=== PATIENT | female | born 1995 | race Caucasian/White ===

== ENCOUNTER 2016-04-11 22:27 | Emergency (ER) | payer BC, OTHER ==
[~2016-04-11] VITALS: Ht 167.6 cm; Wt 81.5 kg
[~2016-04-11 22:27] MED LIST: LORTA5 PO; SULF1TAB47 PO
[2016-04-11 22:31] VITALS: BP 135/79; PULSE 66; RESP 16; TEMP 98.8; O2SAT 100
--- NOTE | 2016-04-11 22:55 | PD ---
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 Patient's last menstrual period was February 28 and reportedly normal for her. Patient was seen by her electronic systems security assessment approximately a week ago at which time Dr. Kennedy's office obtained a urine test that was reportedly positive. Patient had a positive home test prior to going to see her electronic systems security assessment. Patient was encouraged to follow-up with an jewelry setter and has an appointment with Dr. Napoles May 01. Patient has been taking vitamins. Patient states evening she had excruciating pelvic pain that resolved spontaneously until this evening after dinner had recurrent cramping presently 2 /10 in intensity at worst 7/10 in intensity. Patient is 1 para 0 AB 0. PFSH Past Medical History Narrative Medical Headaches, Ab0; no tobacco use nursing notes reviewed Diminished Hearing: No Headaches: Yes Immunizations Current: Yes Social History Alcohol Use: No Tobacco Use: No Substance Use: No Allergies-Medications (Allergen,Severity, Reaction): Coded Allergies: No Known Allergies (Verified , 04/11/16) Reported Meds & Prescriptions Reported Meds & Active Scripts Active Lortab 5/325 Tab (Hydrocodone-Acetaminophen) 1 Tab Tab 1 Tab PO Q6H PRN Bactrim Ds (Trimethoprim/Sulfamethoxazole) Tab 1 Tab PO BID Review of Systems Except as stated in HPI: all other systems reviewed are Neg General / Constitutional: No: Fever, Chills Cardiovascular: No: Chest Pain or Discomfort Respiratory: No: Shortness of Breath Gastrointestinal: Positive: Abdominal Pain, No: Vomiting Genitourinary: Positive: Pelvic Pain, Vaginal Bleeding, No: Dysuria, Discharge Musculoskeletal: No: Pain Skin: No Rash Neurologic: No: Weakness Psychiatric: No: Anxiety Hematologic/Lymphatic: No: Lymph Node Enlargement Physical Exam Narrative GENERAL: Well-developed well-nourished female in no acute distress no respiratory distress SKIN: Warm and dry. HEAD: Normocephalic. EYES: No scleral icterus. No injection or drainage. NECK: Supple, trachea midline. No JVD or lymphadenopathy. CARDIOVASCULAR: Regular rate and rhythm without murmurs, gallops, or rubs. RESPIRATORY: Breath sounds equal bilaterally. No accessory muscle use. GASTROINTESTINAL: Abdomen soft, mild suprapubic tenderness to direct palpation without guarding or rebound, nondistended. Pelvic exam: MUSCULOSKELETAL: No cyanosis, or edema. BACK: Nontender without obvious deformity. No CVA tenderness. Data Data Last Documented VS Vital Signs Date Time Temp Pulse Resp B/P Pulse Ox O2 Delivery O2 Flow Rate FiO2 04/12/16 00:10 55 16 110/66 100 Room Air 04/11/16 22:31 98.8 Orders Beta Hcg (Quant/Titer) (04/11/16 22:48) Complete Blood Count With Diff (04/11/16 22:48) Complete Rh (04/11/16 22:48) Urinalysis - C+S If Indicated (04/11/16 22:48) Iv Access Insert/Monitor (04/11/16 22:48) Ed Urine Pregnancytest Poc (04/11/16 22:48) Us Pelvis (Ques Pr/Ect)W Trans (04/12/16 ) Labs Laboratory Tests Test 04/11/16 23:05 White Blood Count 6.7 TH/MM3 Red Blood Count 4.81 MIL/MM3 Hemoglobin 14.3 GM/DL Hematocrit 42.7 % Mean Corpuscular Volume 88.8 FL Mean Corpuscular Hemoglobin 29.8 PG Mean Corpuscular Hemoglobin 33.6 % Concent Red Cell Distribution Width 13.0 % Platelet Count 183 TH/MM3 Mean Platelet Volume 8.9 FL Neutrophils (%) (Auto) 53.4 % Lymphocytes (%) (Auto) 38.6 % Monocytes (%) (Auto) 6.1 % Eosinophils (%) (Auto) 0.9 % Basophils (%) (Auto) 1.0 % Neutrophils # (Auto) 3.5 TH/MM3 Lymphocytes # (Auto) 2.6 TH/MM3 Monocytes # (Auto) 0.4 TH/MM3 Eosinophils # (Auto) 0.1 TH/MM3 Basophils # (Auto) 0.1 TH/MM3 CBC Comment DIFF FINAL Differential Comment Urine Color STRAW Urine Turbidity CLEAR Urine pH 5.5 Urine Specific [place] 1.002 Urine Protein NEG mg/dL Urine Glucose (UA) NEG mg/dL Urine Ketones NEG mg/dL Urine Occult Blood SMALL Urine Nitrite NEG Urine Bilirubin NEG Urine Leukocyte Esterase NEG Urine RBC 0-3 /hpf Urine WBC 0-2 /hpf Urine Squamous Epithelial 0-5 /hpf Cells Urine Bacteria NONE /hpf Microscopic Urinalysis Comment CULT NOT INDICATED Human Chorionic Gonadotropin, 237 MIU/ML Quant Blood Type A POSITIVE Rho(D) Type POSITIVE MDM Medical Decision Making Medical Screen Exam Complete: Yes Emergency Medical Condition: Yes Medical Record Reviewed: Yes Interpretation(s) (A+) poc hcg: negative quant HC ua: normal cbc: values wnl US preg: CONCLUSION: 1. The ovaries are normal. 2. There is trace free fluid. 3. A tiny cystic focus in the endometrium may reflect an early gestational sac too small for dates. A yolk sac or pole not identified at this time. 4. Continued clinical and sonographic followup suggested. 5. There is trace fluid in the endocervical canal. Lane Gilmore MD on April 12, 2016 at 1:25 Board Certified Radiologist. This report was verified electronically. Differential Diagnosis , ectopic , spontaneous versus threatened versus incomplete versus inevitable AB, UTI Narrative Course IV access obtained specimens collected and sent for resulting [id number] hCG negative Bedside ultrasound reveals no obvious intrauterine ; pelvic exam cervical os closed scant old blood in vaginal vault no clots no tissue; no adnexal mass or tenderness to palpation no cervical motion tenderness or uterine tenderness to direct palpation. Quantitative hCG pending transvaginal pelvic ultrasound ordered. AB Rh pending patient reports she is a positive. Patient with significant other at bedside aware of quantitative hCG and urine test results. At 1:40 AM ultrasound is resulted and consistent with possible very early intrauterine with normal-appearing ovaries; no further spotting or bleeding in the emergency department; no discomfort at this time; patient is aware that based on quantitative hCG and hesitation may be at risk for very early with nonspecific vaginal bleeding versus threatened/incomplete versus inevitable miscarriage. Patient replaced at bedrest and pelvic rest 2 days with recommendation for repeat quantitative hCG in 48 hours and follow-up with her RODENT EXTERMINATOR Procedures Procedure Narrative [id number] ultrasound; with curvilinear probe transabdominal ultrasound performed by me using longitudinal and sagittal orientation with good visualization of bladder and uterus without obvious intrauterine noted Diagnosis Primary Impression: at early stage Additional Impression: Vaginal bleeding before 22 weeks gestation Referrals: Powersaw Supervisor 2 days Patient Instructions: General Instructions Departure Forms: Tests/Procedures, Work Release Special Instructions: no work x 2 days Additional Instructions: Quantitative hormone level and 48 hours Bedrest/pelvic rest Continue vitamins daily Take acetaminophen/Tylenol as often as every 4-6 hours as needed for minor discomfort/pain or fever 100.4F or greater Return immediately to the nearest emergency department for pain fever or increased bleeding or specifically for bleeding a pad an hour Disposition: 01 DISCHARGE HOME Condition: Stable Vanessa Segura MD Apr 11, 2016 22:55
[2016-04-11 23:20] LABS: BLOOD, URINE SMALL (NEG); GLUCOSE,URINE NEG (NEG); KETONE, URINE NEG (NEG); NITRITE,URINE NEG (NEG); PH, URINE 5.5 (5.0-8.5)
[2016-04-11 23:22] LABS: AUTOMATED NEUTROPHIL # 3.5 TH/MM3 (1.8-7.7); BASOPHIL # 0.1 TH/MM3 (0-0.2); EOSINOPHIL # 0.1 TH/MM3 (0-0.4); EOSINOPHIL % 0.9 % (0.0-4.0); HEMATOCRIT 42.7 % (35.0-46.0); HEMO FLAGS DIFF FINAL; LYMPH % 38.6 % (9.0-44.0); LYMPHOCYTE # 2.6 TH/MM3 (1.0-4.8); MEAN CELL VOLUME 88.8 FL (80.0-100.0); MEAN CORPUSCULAR HEMOGLOBIN 29.8 PG (27.0-34.0); MEAN CORPUSCULAR HGB CONC 33.6 % (32.0-36.0); MONO % 6.1 % (0.0-8.0); NEUT % 53.4 % (16.0-70.0); PLATELET COUNT 183 TH/MM3 (150-450); RED BLOOD COUNT 4.81 MIL/MM3 (4.00-5.30); WHITE BLOOD COUNT 6.7 TH/MM3 (4.0-11.0)
[2016-04-11 23:25] LABS: URINE COLOR STRAW (YELLW/STRAW)
[2016-04-11 23:26] LABS: COMMENT (UR) CULT NOT INDICATED; CULTURE IF INDICATED CULT NOT INDICATED; RBC, URINE 0-3 /hpf (0-3); SQUAMOUS EPITHELIAL CELL URINE 0-5 /hpf (0-5); WBC, URINE 0-2 /hpf (0-5)
[2016-04-11 23:39] LABS: BETA HCG QUANT 237 MIU/ML (0-5)
[2016-04-12 00:10] VITALS: BP 110/66; PULSE 55; RESP 16; O2SAT 100
--- NOTE | 2016-04-12 01:29 | RADHPO ---
EXAM DATE/TIME: 04/12/2016 00:48 [facility] COMPARISON: CT ABDOMEN & PELVIS W/O CONTRAST, May 08, 2013, 6:36. INDICATIONS : Pelvic cramping and spotting. LAB(S): Beta-hC MEDICAL HISTORY : . SURGICAL HISTORY : None. ENCOUNTER: Initial ACUITY: 1 day PAIN SCORE: 3/10 LOCATION: Bilateral pelvis MEASUREMENTS: UTERUS: 7.4 x 4.6 x 3.4 cm ENDOMETRIAL STRIPE: 7 mm RIGHT OVARY: 3.7 x 2.1 x 1.9 cm LEFT OVARY: 2.5 x 1.7 x 1.8 cm FINDINGS: UTERUS: A 4.1 mm cystic focus in the endometrial is present. This may reflect a tiny gestational sac out of r pricilla for accurate dates. RIGHT OVARY: Ovary contains no mass or significant cystic lesion. LEFT OVARY: Ovary contains no mass or significant cystic lesion. MISCELLANEOUS: Trace CONCLUSION: 1. The ovaries are normal. 2. There is trace free fluid. 3. A tiny cystic focus in the endometrium may reflect an early gestational sac too small for dates. A yolk sac or pole not identified at this time. 4. Continued clinical and sonographic followup suggested. 5. There is trace fluid in the endocervical canal. Lane Gilmore MD on April 12, 2016 at 1:25 Board Certified Radiologist. This report was verified electronically.
[2016-04-12 01:55] VITALS: BP 111/64; PULSE 59; RESP 16; O2SAT 100
== END 2016-04-12 02:07 | disposition home or self-care (01) ==
LOC: PHED 22:27
DX: O26.851 Spotting complicating pregnancy, first trimester (principal); O20.9 Hemorrhage in early pregnancy, unspecified; R10.2 Pelvic and perineal pain; R51 Headache
CPT/HCPCS: 76700; 76817; 81001; 84702; 84703; 85025; 86901

== ENCOUNTER 2016-04-12 15:49 | Emergency (ER) | payer BC ==
[~2016-04-12] VITALS: Ht 167.6 cm; Wt 80.0 kg
[2016-04-12 15:54] VITALS: BP 117/71; PULSE 81; RESP 16; TEMP 98.5; O2SAT 100
[2016-04-12 16:23] LABS: AUTOMATED NEUTROPHIL # 3.8 TH/MM3 (1.8-7.7); BASOPHIL # 0.1 TH/MM3 (0-0.2); BASOPHIL % 1.4 % (0.0-2.0); EOSINOPHIL % 0.7 % (0.0-4.0); HEMATOCRIT 43.5 % (35.0-46.0); HEMO FLAGS DIFF FINAL; LYMPH % 28.1 % (9.0-44.0); LYMPHOCYTE # 1.7 TH/MM3 (1.0-4.8); MEAN CELL VOLUME 89.6 FL (80.0-100.0); MEAN CORPUSCULAR HEMOGLOBIN 30.3 PG (27.0-34.0); MEAN CORPUSCULAR HGB CONC 33.8 % (32.0-36.0); MONO % 7.9 % (0.0-8.0); NEUT % 61.9 % (16.0-70.0); PLATELET COUNT 162 TH/MM3 (150-450); RED BLOOD COUNT 4.86 MIL/MM3 (4.00-5.30); RED CELL DISTRIBUTION WIDTH 12.9 % (11.6-17.2); WHITE BLOOD COUNT 6.1 TH/MM3 (4.0-11.0)
--- NOTE | 2016-04-12 16:45 | PD ---
HPI Chief Complaint: Related Problem Time Seen by Provider: 16:30 Travel History International Travel<30 days: No Contact w/Intl Traveler<30days: No Traveled to known affect area: No History of Present Illness HPI Patient is a 20-year-old female who returns to emergency room for evaluation of pelvic pain and bleeding. Patient reports that she was seen in the emergency room last night for similar symptoms. Patient reports that she thought that she was around 6 weeks , reports that hCG Quant obtained last night suggests that she may be earlier in her . Patient reports that her HCG quant was 237 around midnight last night. Patient reports that she had an ultrasound performed last night which showed possible early intrauterine with normal appearing ovaries. Reports that she was told that she had high risk for miscarriage given her symptoms. Reports that she had noticed increased bleeding today with increased lower abdominal cramping. Patient concerned that she may be having a miscarriage at this time. Patient reports that this is her first , patient is AB 0 Patient's pig farm manager is Dr. Vann who did confirm positive Patient will be seeing Dr. Gay with CAMPUS SECURITY OFFICER on May 01 for the remainder of her PFSH Past Medical History Diminished Hearing: No Headaches: Yes Immunizations Current: Yes ?: LMP: 02/29/16 : 1 Family History Family History: Negative Social History Alcohol Use: No Tobacco Use: No Substance Use: No Allergies-Medications (Allergen,Severity, Reaction): Coded Allergies: Prednisone (Verified Allergy, Intermediate, hives, 04/12/16) Reported Meds & Prescriptions Reported Meds & Active Scripts Active No Active Prescriptions or Reported Medications Review of Systems General / Constitutional: No: Fever Eyes: No: Visual changes HENT: No: Headaches Cardiovascular: No: Chest Pain or Discomfort Respiratory: No: Shortness of Breath Gastrointestinal: Positive: Abdominal Pain, No: Nausea, Vomiting, Diarrhea Genitourinary: No: Dysuria Musculoskeletal: No: Pain Skin: No Rash Neurologic: No: Weakness Psychiatric: No: Depression Endocrine: No: Polydipsia Hematologic/Lymphatic: No: Easy Bruising Physical Exam Narrative GENERAL: No acute distress, nontoxic SKIN: Warm and dry. HEAD: Atraumatic. Normocephalic. EYES: Pupils equal and round. No scleral icterus. No injection or drainage. ENT: No nasal bleeding or discharge. Mucous membranes pink and moist. NECK: Trachea midline. No JVD. CARDIOVASCULAR: Regular rate and rhythm. No murmur appreciated. RESPIRATORY: No accessory muscle use. Clear to auscultation. Breath sounds equal bilaterally. GASTROINTESTINAL: Abdomen soft, non-tender, nondistended. : patient refuses as she reports that she had a pelvic exam recently MUSCULOSKELETAL: No obvious deformities. No clubbing. No cyanosis. No edema. NEUROLOGICAL: Awake and alert. No obvious cranial nerve deficits. Motor grossly within normal limits. Normal speech. PSYCHIATRIC: Appropriate mood and affect; insight and judgment normal. Data Data Last Documented VS Vital Signs Date Time Temp Pulse Resp B/P Pulse Ox O2 Delivery O2 Flow Rate FiO2 04/12/16 15:54 98.5 81 16 117/71 100 Orders Beta Hcg (Quant/Titer) (04/12/16 16:10) Complete Blood Count With Diff (04/12/16 16:10) Labs Laboratory Tests Test 04/12/16 16:15 White Blood Count 6.1 TH/MM3 Red Blood Count 4.86 MIL/MM3 Hemoglobin 14.7 GM/DL Hematocrit 43.5 % Mean Corpuscular Volume 89.6 FL Mean Corpuscular Hemoglobin 30.3 PG Mean Corpuscular Hemoglobin 33.8 % Concent Red Cell Distribution Width 12.9 % Platelet Count 162 TH/MM3 Mean Platelet Volume 8.9 FL Neutrophils (%) (Auto) 61.9 % Lymphocytes (%) (Auto) 28.1 % Monocytes (%) (Auto) 7.9 % Eosinophils (%) (Auto) 0.7 % Basophils (%) (Auto) 1.4 % Neutrophils # (Auto) 3.8 TH/MM3 Lymphocytes # (Auto) 1.7 TH/MM3 Monocytes # (Auto) 0.5 TH/MM3 Eosinophils # (Auto) 0.0 TH/MM3 Basophils # (Auto) 0.1 TH/MM3 CBC Comment DIFF FINAL Differential Comment Human Chorionic Gonadotropin, 228 MIU/ML Quant MDM Medical Decision Making Medical Screen Exam Complete: Yes Emergency Medical Condition: Yes Interpretation(s) Vital Signs Date Time Temp Pulse Resp B/P Pulse Ox O2 Delivery O2 Flow Rate FiO2 04/12/16 15:54 98.5 81 16 117/71 100 Differential Diagnosis Early , threatened miscarriage, ectopic Narrative Course Patient is a 20-year-old female who returns to emergency room for evaluation of irregular vaginal bleeding with . She reports that she was seen in the emergency room last night and left learning and development officer after full evaluation which included a pelvic ultrasound, blood work, and evaluation. Patient returns to emergency room for repeat hCG Quant as her number was 237 last night. Patient concerned that she may be miscarrying as she has had increased vaginal bleeding today. Patient's blood work yesterday showed Type and screen: A + HCG Quant: 237 Patient overall nontoxic on evaluation. HCG quant ordered as well as CBC. CBC: WBC 6.1 Hemoglobin 14.7 Hematocrit 43.5 Platelets 162 HCG Quant: 228 HCG Quant was 237 yesterday, this number has decreased overnight. Discussed my concerns with patient for miscarriage. Patient understands and also understands need to have her HCG quant trended to 0. She will continue her vitamins and will follow up with press assistant and will return to ER as needed. Patient understands need for continued bed rest and pelvic rest. Signs and symptoms of when to return to ER was reviewed with patient. Diagnosis Primary Impression: Vaginal bleeding before 22 weeks gestation Additional Impression: Miscarriage, threatened, early Patient Instructions: General Instructions Additional Instructions: Your hCG Quant was 228 today Your hCG Quant was 237 yesterday Please follow-up with your CAMPUS SECURITY OFFICER as soon as possible You will need to have your hCG Quant levels trended Return to the emergency room immediately if you have return of pain, fever or increased bleeding Continue taking your vitamins. Scripts No Active Prescriptions or Reported Meds Disposition: DISCHARGE HOME Condition: Stable Amy Álvarez DO Apr 12, 2016 16:45
[2016-04-12 16:47] LABS: BETA HCG QUANT 228 MIU/ML (0-5)
[2016-04-12] MEDS ORDERED: oxyCODONE/ACETAMINOPHEN 5 MG/325 MG TAB PO ONE (17:45)
== END 2016-04-12 17:59 | disposition home or self-care (01) ==
LOC: PHED 15:49
DX: O20.0 Threatened abortion (principal); Z3A.01 Less than 8 weeks gestation of pregnancy
CPT/HCPCS: 84702; 85025; 99284

== ENCOUNTER 2017-04-24 12:59 | Emergency (ER) | payer BC ==
[~2017-04-24] VITALS: Ht 167.6 cm; Wt 89.0 kg
[2017-04-24 13:04] VITALS: BP 141/99; PULSE 73; RESP 16; TEMP 98.2; O2SAT 100
[2017-04-24 13:19] LABS: BILIRUBIN, URINE NEG (NEG); BLOOD, URINE NEG (NEG); GLUCOSE,URINE NEG (NEG); KETONE, URINE NEG (NEG); NITRITE,URINE NEG (NEG); URINE LEUKOCYTE ESTERASE TRACE (NEG)
[2017-04-24 13:23] LABS: SQUAMOUS EPITHELIAL CELL URINE > 8 /hpf (0-5); URINE COLOR YELLOW (YELLW/STRAW)
[2017-04-24 13:24] LABS: AMORPHOUS SEDIMENT, URINE MOD; BACTERIA, URINE FEW /hpf
[2017-04-24] MEDS ORDERED: SODIUM CHLORIDE 0.9% FLUSH 10 ML FLUSH IV FLUSH PRN (14:30)
[2017-04-24] MEDS ORDERED: KETOROLAC TROMETHAMINE 30 MG/ML (IVP) VIAL IVP ONE (14:30)
--- NOTE | 2017-04-24 14:36 | PD ---
HPI Chief Complaint: Abdominal Pain Time Seen by Provider: 14:17 Travel History International Travel<30 days: No Contact w/Intl Traveler<30days: No Traveled to known affect area: No History of Present Illness HPI 21-year-old female complains of right low quadrant abdominal pain and constipation. Patient states that the symptoms started about 2 days ago. Patient states the pain is sharp pain localized to right low quadrant of the abdomen. Patient denies any pain radiation. Patient denies any nausea vomiting diarrhea. Patient denies any dysuria or frequency. Patient states that she has small amount of vaginal discharge. Patient denies any vaginal bleeding. Patient states that she had pressure pain with urination and bowel movement for the past 3 days. PFSH Past Medical History Medical History: Denies Significant Hx Diminished Hearing: No Headaches: Yes Immunizations Current: Yes Influenza Vaccination: No ?: Not LMP: 04/07/17 : 1 Past Surgical History Surgical History: No Previous Surgery Social History Alcohol Use: No Tobacco Use: No Substance Use: No Allergies-Medications (Allergen,Severity, Reaction): Coded Allergies: prednisone (Unverified Allergy, Intermediate, hives, 04/24/17) Reported Meds & Prescriptions Reported Meds & Active Scripts Active No Active Prescriptions or Reported Medications Review of Systems General / Constitutional: No: Fever Eyes: No: Visual changes HENT: No: Headaches Cardiovascular: No: Chest Pain or Discomfort Respiratory: No: Shortness of Breath Gastrointestinal: Positive: Abdominal Pain Genitourinary: No: Dysuria Musculoskeletal: No: Pain Skin: No Rash Neurologic: No: Weakness Psychiatric: No: Depression Endocrine: No: Polydipsia Hematologic/Lymphatic: No: Easy Bruising Physical Exam Narrative GENERAL: Well-nourished, well-developed patient. SKIN: Focused skin assessment warm/dry. HEAD: Normocephalic. EYES: No scleral icterus. No injection or drainage. NECK: Supple, trachea midline. No JVD or lymphadenopathy. CARDIOVASCULAR: Regular rate and rhythm without murmurs, gallops, or rubs. RESPIRATORY: Breath sounds equal bilaterally. No accessory muscle use. GASTROINTESTINAL: Abdomen soft, nondistended. Patient has mild tenderness on palpation right lower quadrant of the abdomen. No rebound tenderness. No mass. MUSCULOSKELETAL: No cyanosis, or edema. BACK: Nontender without obvious deformity. No CVA tenderness. Data Data Last Documented VS Vital Signs Date Time Temp Pulse Resp B/P (MAP) Pulse Ox O2 Delivery O2 Flow Rate FiO2 04/24/17 14:56 98 Aerosol Mask 04/24/17 13:04 98.2 73 16 141/99 (113) Orders Orders Urinalysis - C+S If Indicated (04/24/17 13:07) Ed Urine Pregnancytest Poc (04/24/17 13:07) Urine Culture (04/24/17 13:10) Complete Blood Count With Diff (04/24/17 14:28) Comprehensive Metabolic Panel (04/24/17 14:28) Ct Abd/Pel W Iv Contrast(Rout) (04/24/17 14:28) Iv Access Insert/Monitor (04/24/17 14:28) Ecg Monitoring (04/24/17 14:28) Oximetry (04/24/17 14:28) Sodium Chloride 0.9% Flush (Ns Flush) (04/24/17 14:30) Ketorolac Inj (Toradol Inj) (04/24/17 14:30) Gc And Chlamydia Pcr (04/24/17 14:34) Iohexol 350 Inj (Omnipaque 350 Inj) (04/24/17 15:17) Labs Laboratory Tests Test 04/24/17 13:10 04/24/17 14:45 Urine Collection Type CLEAN CATCH Urine Color YELLOW Urine Turbidity CLEAR Urine pH 6.0 Urine Specific [place] 1.022 Urine Protein NEG mg/dL Urine Glucose (UA) NEG mg/dL Urine Ketones NEG mg/dL Urine Occult Blood NEG Urine Nitrite NEG Urine Bilirubin NEG Urine Leukocyte Esterase TRACE Urine WBC 6-8 /hpf Urine Squamous Epithelial Cells > 8 /hpf Urine Amorphous Sediment MOD Urine Bacteria FEW /hpf Microscopic Urinalysis Comment CULTURE INDICATED White Blood Count 6.4 TH/MM3 Red Blood Count 5.08 MIL/MM3 Hemoglobin 15.1 GM/DL Hematocrit 45.6 % Mean Corpuscular Volume 89.9 FL Mean Corpuscular Hemoglobin 29.8 PG Mean Corpuscular Hemoglobin Concent 33.1 % Red Cell Distribution Width 12.2 % Platelet Count 180 TH/MM3 Mean Platelet Volume 9.0 FL Neutrophils (%) (Auto) 66.4 % Lymphocytes (%) (Auto) 26.9 % Monocytes (%) (Auto) 5.6 % Eosinophils (%) (Auto) 0.4 % Basophils (%) (Auto) 0.7 % Neutrophils # (Auto) 4.3 TH/MM3 Lymphocytes # (Auto) 1.7 TH/MM3 Monocytes # (Auto) 0.4 TH/MM3 Eosinophils # (Auto) 0.0 TH/MM3 Basophils # (Auto) 0.0 TH/MM3 CBC Comment DIFF FINAL Differential Comment Blood Urea Nitrogen 14 MG/DL Creatinine 0.81 MG/DL Random Glucose 85 MG/DL Total Protein 7.3 GM/DL Albumin 4.1 GM/DL Calcium Level 9.1 MG/DL Alkaline Phosphatase 65 U/L Aspartate Amino Transf (AST/SGOT) 16 U/L Alanine Aminotransferase (ALT/SGPT) 18 U/L Total Bilirubin 0.4 MG/DL Sodium Level 138 MEQ/L Potassium Level 3.7 MEQ/L Chloride Level 104 MEQ/L Carbon Dioxide Level 27.1 MEQ/L Anion Gap 7 MEQ/L Estimat Glomerular Filtration Rate 90 ML/MIN MDM Medical Decision Making Medical Screen Exam Complete: Yes Emergency Medical Condition: Yes Interpretation(s) 1435 PM. Urine test negative. UA is negative. [address] scan abdomen and pelvis shows ovarian cyst. CBC within normal limit. CMP within normal limit. UA positive with WBC and bacteria. Differential Diagnosis Differential diagnosis including ovarian cyst, ovarian torsion, ectopic , appendicitis, colitis, UTI, pyelonephritis, nephrolithiasis. Narrative Course 21-year-old female with right lower quadrant abdominal pain. Diagnosis Primary Impression: UTI (urinary tract infection) Qualified Codes: N30.00 - Acute cystitis without hematuria Additional Impression: Ovarian cyst Qualified Codes: N83.201 - Unspecified ovarian cyst, right side Patient Instructions: General Instructions Additional Instructions: Take medications as needed for pain. Follow-up with personal physician. Return if worse. Med/Other Pt SpecificInfo: Prescription(s) given Scripts Ibuprofen (Ibuprofen) 600 Mg Tab 600 MG PO TID for Pain, #30 TAB 0 Refills Prov: Mathew Cadena MD 04/24/17 Sulfamethoxazole-Trimethoprim (Bactrim DS) 800-160 Mg Tab 1 TAB PO BID for Infection, #6 TAB 0 Refills Prov: Mathew Cadena MD 04/24/17 Disposition: 01 DISCHARGE HOME Condition: Stable Mathew Cadena MD Apr 24, 2017 14:36
[2017-04-24 14:52] LABS: AUTOMATED NEUTROPHIL # 4.3 TH/MM3 (1.8-7.7); BASOPHIL % 0.7 % (0.0-2.0); EOSINOPHIL % 0.4 % (0.0-4.0); HEMATOCRIT 45.6 % (35.0-46.0); HEMOGLOBIN 15.1 GM/DL (11.6-15.3); LYMPH % 26.9 % (9.0-44.0); LYMPHOCYTE # 1.7 TH/MM3 (1.0-4.8); MEAN CELL VOLUME 89.9 FL (80.0-100.0); MEAN CORPUSCULAR HEMOGLOBIN 29.8 PG (27.0-34.0); MEAN CORPUSCULAR HGB CONC 33.1 % (32.0-36.0); MONO % 5.6 % (0.0-8.0); MONOCYTE # 0.4 TH/MM3 (0-0.9); NEUT % 66.4 % (16.0-70.0); PLATELET COUNT 180 TH/MM3 (150-450); RED BLOOD COUNT 5.08 MIL/MM3 (4.00-5.30); RED CELL DISTRIBUTION WIDTH 12.2 % (11.6-17.2); WHITE BLOOD COUNT 6.4 TH/MM3 (4.0-11.0)
[2017-04-24 14:56] VITALS: O2SAT 98
[2017-04-24 15:01] LABS: CHLORIDE 104 MEQ/L (98-107); SODIUM (NA) 138 MEQ/L (136-145)
[2017-04-24 15:05] LABS: ALBUMIN 4.1 GM/DL (3.4-5.0); BICARBONATE 27.1 MEQ/L (21.0-32.0); BLOOD UREA NITROGEN 14 MG/DL (7-18); CALCIUM 9.1 MG/DL (8.5-10.1); GLUCOSE,RANDOM 85 MG/DL (74-106)
[2017-04-24 15:08] LABS: ALT (GPT) 18 U/L (9-42); AST (GOT) 16 U/L (16-38); CREATININE 0.81 MG/DL (0.50-1.00); GLOMERULAR FILTRATION RATE 90 ML/MIN (>89)
[2017-04-24 15:10] LABS: TOTAL BILIRUBIN ADULT 0.4 MG/DL (0.2-1.0); TOTAL PROTEIN 7.3 GM/DL (6.4-8.2)
[2017-04-24 15:11] LABS: ALKALINE PHOSPHATASE 65 U/L (45-117)
[2017-04-24] MEDS ORDERED: IOHEXOL 350 MG/ML 10 ML VIAL (for RAD DIAG) IVCONTRAST ONE (15:17)
--- NOTE | 2017-04-24 15:42 | RADRPT ---
EXAM DATE/TIME: 04/24/2017 15:06 [facility] COMPARISON: CT ABDOMEN & PELVIS W/O CONTRAST, May 08, 2013, 6:36. INDICATIONS : Right lower abdominal pain, pressure with urination, intercourse and bowel movements. IV CONTRAST: 75 cc Omnipaque 350 (iohexol) IV ORAL CONTRAST: No oral contrast ingested. RADIATION DOSE: 12.55 CTDIvol (mGy) MEDICAL HISTORY : None SURGICAL HISTORY : None. ENCOUNTER: Initial ACUITY: 1 day PAIN SCALE: 6/10 LOCATION: Right lower quadrant TECHNIQUE: Volumetric scanning of the abdomen and pelvis was performed. Using automated exposure control and ad justment of the mA and/or kV according to patient size, radiation dose was kept as low as reasonably achievable to obtain optimal diagnostic quality images. DICOM format image data is available electro nically for review and comparison. FINDINGS: LOWER LUNGS: The visualized lower lungs are clear. LIVER: Homogeneous density without lesion. There is no dilation of the biliary tree. No calcified gallston es. Gallbladder seen as a luminal structure without wall thickening or stones SPLEEN: Normal size without lesion. PANCREAS: Within normal limits. KIDNEYS: Normal in size and shape. There is no mass, stone or hydronephrosis. ADRENAL GLANDS: Within normal limits. VASCULAR: There is no aortic aneurysm. BOWEL/MESENTERY: The stomach, small bowel, and colon demonstrate no acute abnormality. There is no free intraperitone al air or fluid. The cecum resides in the right low pelvis. ABDOMINAL WALL: Within normal limits. RETROPERITONEUM: There is no lymphadenopathy. BLADDER: No wall thickening or mass. REPRODUCTIVE: Uterus appears normal. There are findings of 2.3 cm cyst in the left ovary and a 4.2 cm cyst in the r ight ovary INGUINAL: There is no lymphadenopathy or hernia. MUSCULOSKELETAL: Within normal limits for patient age. CONCLUSION: Bilateral ovary cysts largest on the right 4.2 cm on the left 2.3 cm. Otherwise negative examination Gregory Alfred MD on April 24, 2017 at 15:35 Board Certified Radiologist. This report was verified electronically.
[2017-04-24] MEDS ORDERED: IBUP-232 PO (15:55)
[2017-04-24] MEDS ORDERED: BACT800T5 PO (15:55)
[2017-04-24 15:56] VITALS: BP 111/70
== END 2017-04-24 16:05 | disposition home or self-care (01) ==
LOC: PHED 12:59
DX: N30.00 Acute cystitis without hematuria (principal); N83.201 Unspecified ovarian cyst, right side; Z88.8 Allergy status to other drugs, medicaments and biological substances
CPT/HCPCS: 74177; 80053; 81001; 84703; 85025; 87086; 87491; 87591; 96374; 99284; J1885; Q9967

== ENCOUNTER 2017-04-26 13:48 | Emergency (ER) | payer BC ==
[~2017-04-26] VITALS: Ht 167.6 cm; Wt 88.0 kg
[~2017-04-26 13:48] MED LIST changes: +BACT800T5 PO; +IBUP-232 PO; -LORTA5 PO; -SULF1TAB47 PO
[2017-04-26 14:03] VITALS: BP 124/81; PULSE 83; RESP 16; TEMP 98.2; O2SAT 100
[2017-04-26] MEDS ORDERED: AZITHROMYCIN PWD FOR SUSP 1 GM PACKET PO ONE (14:45)
--- NOTE | 2017-04-26 14:45 | PD ---
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 Patient states that she was seen in the emergency room 2 days ago, diagnosed with UTI and ovarian cysts. She states that she received a phone call that her sample was positive for Chlamydia and is here requesting treatment. She endorses lower abdominal cramping. She denies fever, chills, nausea, vomiting, vaginal discharge, unusual vaginal bleeding. She states that she took one dose of the Bactrim but it made her sick so she has not been compliant with the medication. PFSH Past Medical History Diminished Hearing: No Headaches: Yes Immunizations Current: Yes ?: Not LMP: 04/07/2017 : 1 Past Surgical History Surgical History: No Previous Surgery Social History Alcohol Use: No Tobacco Use: No Substance Use: No Allergies-Medications (Allergen,Severity, Reaction): Coded Allergies: prednisone (Unverified Allergy, Intermediate, hives, 04/26/17) Reported Meds & Prescriptions Reported Meds & Active Scripts Active Zofran Odt (Ondansetron Odt) 4 Mg Tab 4 Mg SL ONCE Zithromax Powder Packet (Azithromycin) 1 Gm Powderpack 1 Gm PO ONCE Mix with water according to packet instructions before use. Review of Systems Except as stated in HPI: all other systems reviewed are Neg Physical Exam Narrative GENERAL: Well-nourished, well-developed white female in no acute distress. SKIN: Focused skin assessment warm/dry. HEAD: Normocephalic. EYES: No scleral icterus. No injection or drainage. NECK: Supple, trachea midline. No JVD or lymphadenopathy. CARDIOVASCULAR: Regular rate and rhythm without murmurs, gallops, or rubs. RESPIRATORY: Breath sounds clear and equal bilaterally. No accessory muscle use. GASTROINTESTINAL: Abdomen soft, non-tender, nondistended. Active bowel sounds. MUSCULOSKELETAL: No cyanosis, or edema. BACK: Nontender without obvious deformity. No CVA tenderness. Data Data Last Documented VS Vital Signs Date Time Temp Pulse Resp B/P (MAP) Pulse Ox O2 Delivery O2 Flow Rate FiO2 04/26/17 14:03 98.2 83 16 124/81 (95) 100 Orders Orders Azithromycin Powd Pack (Zithromax Powd P (04/26/17 14:45) Ed Discharge Order (04/26/17 15:15) [facility] Medical Decision Making Medical Screen Exam Complete: Yes Emergency Medical Condition: Yes Differential Diagnosis Chlamydia versus gonorrhea versus UTI versus other Narrative Course 21-year-old female presents to the ED requesting treatment for chlamydia. Patient states that she was seen in the emergency room 2 days ago, diagnosed with UTI and ovarian cysts. She states that she received a phone call that her sample was positive for Chlamydia and is here requesting treatment. Vitals reviewed. Physical exam is unremarkable. Per patient's record review the urine grew out mixed chiquita, no treatment needed. Patient was administered 1 g azithromycin by mouth in the emergency room. Approximately 20 minutes after administration of medication patient had an episode of emesis. She is provided a prescription for 1 g is otherwise about a pack and a single dose of Zofran. She is instructed to take the Zofran 20 minutes before administration of the antibiotic tomorrow. She is instructed to follow-up with the health department or package liner for further evaluation and STI testing. She indicated understanding of the instructions and is agreeable the care plan. Patient is stable and discharged home. 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 condoms. Follow-up with the Health Department in one week for test of cure. Notify all partners to be screened and treated. Abstain from sex until test of cure is proven. Return to the ED for worsening symptoms or any urgent or emergent medical condition. Scripts Ondansetron Odt (Zofran Odt) 4 Mg Tab 4 MG SL ONCE for Nausea/Vomiting, #1 TAB 0 Refills Prov: Paul Palacios MD 04/26/17 Azithromycin Powder Packet (Zithromax Powder Packet) 1 Gm Powderpack 1 GM PO ONCE for Infection, #1 PKT 0 Refills Mix with water according to packet instructions before use. Prov: Paul Palacios MD 04/26/17 Disposition: 01 DISCHARGE HOME Condition: Stable Moraima Knight Apr 26, 2017 14:45
[2017-04-26] MEDS ORDERED: ZITH1POW PO (15:40)
[2017-04-26] MEDS ORDERED: ZOFR4TAB3 SL (15:40)
== END 2017-04-26 16:08 | disposition home or self-care (01) ==
LOC: PHEFT 13:48
DX: A74.9 Chlamydial infection, unspecified (principal); R11.2 Nausea with vomiting, unspecified
CPT/HCPCS: 99283

== ENCOUNTER 2017-07-13 18:19 | Emergency (ER) | payer BC ==
[~2017-07-13] VITALS: Ht 167.6 cm; Wt 85.1 kg
[~2017-07-13 18:19] MED LIST changes: -BACT800T5 PO; -IBUP-232 PO; +ZITH1POW PO; +ZOFR4TAB3 SL
[2017-07-13 18:25] VITALS: BP 126/59; PULSE 60; RESP 16; TEMP 98.9; O2SAT 100
[2017-07-13] MEDS ORDERED: SODIUM CHLOR 0.9% 1000 ML INJ 1,000 ML IV ONE (19:15)
--- NOTE | 2017-07-13 19:29 | PD ---
HPI Chief Complaint: Related Problem Time Seen by Provider: 19:12 Travel History International Travel<30 days: No Contact w/Intl Traveler<30days: No Traveled to known affect area: No History of Present Illness HPI 21-year-old female with the past medical history ovarian cysts, 6 weeks by dates, A1 presents to the emergency room due to vaginal bleeding that started this morning. Bleeding is minimal ,spotting like , with lower abdominal cramping. Pain is mild 4 out of 10 radiating from right to left or left to right. Patient complains of frequency. She denies any nausea, vomiting, fever, chills, chest pain, shortness of breath, diarrhea or rectal bleeding. Patient denies any abdominal trauma or pelvic injury. Patient reports having a history of STD (chlamydia) back in April that was treated as an outpatient. PENDING SALE TO [facility] Past Medical History Diminished Hearing: No Headaches: Yes Immunizations Current: Yes Tetanus Vaccination: Unknown Influenza Vaccination: No ?: LMP: 05/31/17 : 1 Social History Alcohol Use: No Tobacco Use: No Substance Use: No Allergies-Medications (Allergen,Severity, Reaction): Coded Allergies: prednisone (Unverified Allergy, Intermediate, hives, 04/26/17) sulfamethoxazole (Verified Allergy, Unknown, 07/13/17) MUSCLE PAIN trimethoprim (Verified Allergy, Unknown, 07/13/17) MUSCLE PAIN Reported Meds & Prescriptions Reported Meds & Active Scripts Active Review of Systems Except as stated in HPI: all other systems reviewed are Neg General / Constitutional: No: Fever, Chills Eyes: No: Blurred Vision, Redness, Pain HENT: No: Rhinorrhea, Congestion, Neck Stiffness, Neck Pain, Earache Cardiovascular: No: Chest Pain or Discomfort, Palpitations, Dyspnea on exertion Respiratory: No: Cough, Shortness of Breath, Wheezing Gastrointestinal: Positive: Nausea, Abdominal Pain, No: Vomiting, Diarrhea, Hematochezia, Constipation Genitourinary: Positive: Frequency, No: Dysuria Musculoskeletal: No: Myalgias Skin: No Rash, No Hives Neurologic: No: Weakness, Dizziness, Syncope, Headache, Slurred Speech, Seizures Psychiatric: No: Suicidal Ideations Physical Exam Narrative Vital Signs Date Time Temp Pulse Resp B/P (MAP) Pulse Ox O2 Delivery O2 Flow Rate FiO2 07/13/17 18:25 98.9 60 16 126/59 (81) 100 GENERAL: Patient is alert and oriented -3 SKIN: Focused skin assessment warm/dry. HEAD: Atraumatic. Normocephalic. EYES: Pupils equal and round. No scleral icterus. No injection or drainage. ENT: No nasal bleeding or discharge. Mucous membranes pink and moist. NECK: Trachea midline. No JVD. CARDIOVASCULAR: Regular rate and rhythm. No murmur appreciated. RESPIRATORY: No accessory muscle use. Clear to auscultation. Breath sounds equal bilaterally. GASTROINTESTINAL: Abdomen soft, mild diffuse lower abdominal tenderness, nondistended. Hepatic and splenic margins not palpable. MUSCULOSKELETAL: No obvious deformities. No clubbing. No cyanosis. No edema. NEUROLOGICAL: Awake and alert. No obvious cranial nerve deficits. Motor grossly within normal limits. Normal speech. PSYCHIATRIC: Appropriate mood and affect; insight and judgment normal. GENITOURINARY: Normal external genitalia without lesions or erythema. Vaginal vault minimal bloody drainage. Cervical os was closed. No cervical motion tenderness. Uterus nontender Bilateral adnexa nontender Data Data Last Documented VS Vital Signs Date Time Temp Pulse Resp B/P (MAP) Pulse Ox O2 Delivery O2 Flow Rate FiO2 07/13/17 22:41 07/13/17 21:37 62 99 Room Air 07/13/17 18:25 98.9 16 Orders Orders Vital Signs (Adult) .ON ADMISSION (07/13/17 19:13) Urinalysis - C+S If Indicated (07/13/17 19:13) Cbc No Diff, Includes Plts (07/13/17 19:13) Comprehensive Metabolic Panel (07/13/17 19:13) Type And Screen (07/13/17 19:13) Wet Prep Profile (07/13/17 19:13) Gc And Chlamydia Pcr (07/13/17 19:13) Sodium Chloride 0.9% Flush (Ns Flush) (07/13/17 21:00) Drug Screen, Random Urine (07/13/17 19:13) Sodium Chlor 0.9% 1000 Ml Inj (Ns 1000 M (07/13/17 19:15) Us Pelvis Preg W Transvaginal (07/13/17 ) Beta Hcg (Quant/Titer) (07/13/17 19:13) Ceftriaxone Inj (Rocephin Inj) (07/13/17 22:00) Azithromycin (Zithromax) (07/13/17 22:00) Ed Discharge Order (07/13/17 22:33) Labs Laboratory Tests Test 07/13/17 19:00 07/13/17 19:30 07/13/17 21:50 Urine Color YELLOW Urine Turbidity CLEAR Urine pH 6.0 Urine Specific Humphreys GREATER/EQUAL 1.030 Urine Protein TRACE mg/dL Urine Glucose (UA) NEG mg/dL Urine Ketones TRACE mg/dL Urine Occult Blood SMALL Urine Nitrite NEG Urine Bilirubin NEG Urine Urobilinogen 0.2 MG/DL Urine Leukocyte Esterase NEG Urine RBC 4-9 /hpf Urine WBC 0-2 /hpf Urine Squamous Epithelial Cells > 8 /hpf Urine Calcium Oxalate Crystals MANY /hpf Urine Bacteria NONE /hpf Microscopic Urinalysis Comment CULT NOT INDICATED Urine Opiates Screen NEG Urine Barbiturates Screen NEG Urine Amphetamines Screen NEG Urine Benzodiazepines Screen NEG Urine Cocaine Screen NEG Urine Cannabinoids Screen POS White Blood Count 8.7 TH/MM3 Red Blood Count 4.60 MIL/MM3 Hemoglobin 14.1 GM/DL Hematocrit 41.8 % Mean Corpuscular Volume 90.8 FL Mean Corpuscular Hemoglobin 30.7 PG Mean Corpuscular Hemoglobin Concent 33.8 % Red Cell Distribution Width 12.3 % Platelet Count 172 TH/MM3 Mean Platelet Volume 9.4 FL Blood Urea Nitrogen 14 MG/DL Creatinine 0.72 MG/DL Random Glucose 72 MG/DL Total Protein 7.6 GM/DL Albumin 4.3 GM/DL Calcium Level 9.5 MG/DL Alkaline Phosphatase 67 U/L Aspartate Amino Transf (AST/SGOT) 15 U/L Alanine Aminotransferase (ALT/SGPT) 18 U/L Total Bilirubin 0.6 MG/DL Sodium Level 139 MEQ/L Potassium Level 3.4 MEQ/L Chloride Level 105 MEQ/L Carbon Dioxide Level 27.5 MEQ/L Anion Gap 7 MEQ/L Estimat Glomerular Filtration Rate 103 ML/MIN Human Chorionic Gonadotropin, Quant 1025 MIU/ML Clue Cells (Wet Prep) NONE SEEN Vaginal Trichomonas (Wet Prep) NONE SEEN Vaginal Yeast (Wet Prep) NONE SEEN Chlamydia trachomatis DNA (PCR) NOT DETECTED Neisseria gonorrhoeae DNA (PCR) NOT DETECTED MDM Medical Decision Making Medical Screen Exam Complete: Yes Emergency Medical Condition: Yes Medical Record Reviewed: Yes Differential Diagnosis Threatened , , complete , ectopic , PID Narrative Course Patient had stable vitals during the ER visit. Plan has been discussed with the patient to follow-up with OB as an outpatient and return to the ER in 2 days to repeat hCG. With the first sign of abdominal pain patient to return to the emergency room Physician Communication Physician Communication I spoke to Dr Zayas regarding this case in which she recommended to repeat hCG quant in 48 hours and repeat ultrasounds in 4-6 weeks. Patient will be discharged home with education on a acute abdomen and ectopic complications. Diagnosis Primary Impression: Miscarriage, threatened, early Additional Impression: Vaginal bleeding before 22 weeks gestation Referrals: Dhara Zayas MD 1 day Patient Instructions: Ectopic (ED), General Instructions, Threatened Miscarriage (ED) Additional Instructions: Return to the emergency room in 2 days to repeat the hCG quantitative test. Your level today was 1025 Disposition: 01 DISCHARGE HOME Condition: Stable Chas Sandoval MD July 13, 2017 19:29
[2017-07-13 19:46] LABS: BILIRUBIN, URINE NEG (NEG); BLOOD, URINE SMALL (NEG); GLUCOSE,URINE NEG (NEG); KETONE, URINE TRACE mg/dL (NEG); NITRITE,URINE NEG (NEG); URINE COLOR YELLOW (YELLW/STRAW); URINE LEUKOCYTE ESTERASE NEG (NEG)
[2017-07-13 19:46] LABS: HEMATOCRIT 41.8 % (35.0-46.0); HEMOGLOBIN 14.1 GM/DL (11.6-15.3); MEAN CELL VOLUME 90.8 FL (80.0-100.0); MEAN CORPUSCULAR HEMOGLOBIN 30.7 PG (27.0-34.0); MEAN CORPUSCULAR HGB CONC 33.8 % (32.0-36.0); MEAN PLATELET VOLUME 9.4 FL (7.0-11.0); PLATELET COUNT 172 TH/MM3 (150-450); RED CELL DISTRIBUTION WIDTH 12.3 % (11.6-17.2); WHITE BLOOD COUNT 8.7 TH/MM3 (4.0-11.0)
[2017-07-13 19:52] LABS: SQUAMOUS EPITHELIAL CELL URINE > 8 /hpf (0-5); WBC, URINE 0-2 /hpf (0-5)
[2017-07-13 19:53] LABS: CHLORIDE 105 MEQ/L (98-107); SODIUM (NA) 139 MEQ/L (136-145)
[2017-07-13 19:53] LABS: CALCIUM OXALATE CRYSTALS,URINE MANY /hpf
[2017-07-13 19:57] LABS: ALBUMIN 4.3 GM/DL (3.4-5.0); BICARBONATE 27.5 MEQ/L (21.0-32.0); BLOOD UREA NITROGEN 14 MG/DL (7-18); CALCIUM 9.5 MG/DL (8.5-10.1); GLUCOSE,RANDOM 72 MG/DL (74-106)
[2017-07-13 20:00] LABS: ALT (GPT) 18 U/L (9-42); AST (GOT) 15 U/L (16-38); CREATININE 0.72 MG/DL (0.50-1.00); GLOMERULAR FILTRATION RATE 103 ML/MIN (>89)
[2017-07-13 20:02] LABS: TOTAL BILIRUBIN ADULT 0.6 MG/DL (0.2-1.0); TOTAL PROTEIN 7.6 GM/DL (6.4-8.2)
[2017-07-13 20:03] LABS: ALKALINE PHOSPHATASE 67 U/L (45-117)
[2017-07-13] MEDS ORDERED: SODIUM CHLORIDE 0.9% FLUSH 10 ML FLUSH IV FLUSH SCH (21:00)
[2017-07-13 21:37] VITALS: BP 119/77; PULSE 62; O2SAT 99
--- NOTE | 2017-07-13 21:50 | RADRPT ---
EXAM DATE/TIME: 07/13/2017 20:56 [facility] COMPARISON: No previous studies available for comparison. INDICATIONS : Vaginal bleeding x 1 day. LAB(S): Beta-hC,025 MEDICAL HISTORY : . SURGICAL HISTORY : None. ENCOUNTER: Initial ACUITY: 1 day PAIN SCORE: 1/10 LOCATION: Bilateral pelvis MEASUREMENTS: UTERUS: 6.8 x 5.4 x 3.3 cm ENDOMETRIAL STRIPE: 7 mm RIGHT OVARY: 4.5 x 3.6 x 3.2 cm LEFT OVARY: 3.5 x 2.9 x 1.8 cm FREE FLUID: Yes Fluid with debris seen within the cul-de-sac. CROWN RUMP LENGTH: Not Visualized. = WKS DAYS FHR: Not Visualized. BPM FINDINGS: No evidence for intrauterine . Endometrial stripe thickness is about 7 mm. 3.1 cm cyst right ovary. Subcentimeter follicles in the left ovary. There is complex fluid containing debris in the cul-de-sac. There is a solid appearing mass seen between the left ovary and uterus measuring up to 1.9 x 1.6 cm. This is of uncertain etiology. CONCLUSION: 1. Negative for intrauterine . 2. Complex fluid with debris in the cul-de-sac. 3. 3.1 cm right ovarian cyst. 4. Solid-appearing mass measuring up to 1.9 cm between the left ovary and uterus. Cannot exclude hemo rrhage. Recommend close sonographic followup or further evaluation with pelvic MRI. Law Garces MD on July 13, 2017 at 21:41 Board Certified Radiologist. This report was verified electronically.
[2017-07-13] MEDS ORDERED: AZITHROMYCIN 250 MG TAB PO ONE (22:00)
[2017-07-13] MEDS ORDERED: cefTRIAXone 250 MG VIAL IM ONE (22:00)
[2017-07-20] MEDS ORDERED: PRENTAB7 PO (23:33)
== END 2017-07-13 22:43 | disposition home or self-care (01) ==
LOC: PHED 18:19
DX: O20.0 Threatened abortion (principal); O99.321 Drug use complicating pregnancy, first trimester; F12.90 Cannabis use, unspecified, uncomplicated; O34.81 Maternal care for other abnormalities of pelvic organs, first trimester; N83.201 Unspecified ovarian cyst, right side; Z3A.01 Less than 8 weeks gestation of pregnancy; Z34.91 Encounter for supervision of normal pregnancy, unspecified, first trimester; Z88.2 Allergy status to sulfonamides; Z88.8 Allergy status to other drugs, medicaments and biological substances
CPT/HCPCS: 76801; 76817; 80053; 80307; 81001; 84702; 85027; 86850; 86900; 86901; 87210; 87491; 87591; 96360; 96372; 99284; J0696; J7030

== ENCOUNTER 2017-07-15 19:23 | Emergency (ER) | payer BC ==
[~2017-07-15] VITALS: Ht 167.6 cm; Wt 86.2 kg
[2017-07-15 19:52] VITALS: BP 124/68; PULSE 72; RESP 16; TEMP 98.2; O2SAT 100
--- NOTE | 2017-07-15 20:36 | PD ---
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 Patient was evaluated 2 days ago here states her spotting has been lessening but she has noticed a new symptom of erythema on the inner aspect of her left leg. She states she has had problems with mild rash on the inner leg before but never this bad. Patient states she still having some spotting but is lessening, denies any abdominal pain and states overall she feels pretty well. Her last visit her beta hCG was approximately 1000. She denies any chest pain shortness breath abdominal pain nausea vomiting diarrhea or constipation. PFSH Past Medical History Diminished Hearing: No Headaches: Yes Immunizations Current: Yes ?: LMP: 05/31/17 : 1 Social History Alcohol Use: No Tobacco Use: No Substance Use: No Allergies-Medications (Allergen,Severity, Reaction): Coded Allergies: prednisone (Unverified Allergy, Intermediate, hives, 07/15/17) sulfamethoxazole (Verified Allergy, Unknown, 07/15/17) MUSCLE PAIN trimethoprim (Verified Allergy, Unknown, 07/15/17) MUSCLE PAIN Reported Meds & Prescriptions Reported Meds & Active Scripts Active Keflex (Cephalexin) 500 Mg Cap 500 Mg PO Q6H 7 Days Review of Systems Except as stated in HPI: all other systems reviewed are Neg Physical Exam Narrative GENERAL: Well-developed well-nourished quite pleasant 21-year-old female in no SKIN: There is an area of cellulitis/erysipelas on the inner aspect of left thigh, probably 10 cm in diameter, there is a small area that is raised in the center consistent with an early abscess but there is no fluid collection that I can identify that needs drainage. HEAD: Atraumatic. Normocephalic. EYES: Pupils equal and round. No scleral icterus. No injection or drainage. ENT: No nasal bleeding or discharge. Mucous membranes pink and moist. NECK: Trachea midline. No JVD. CARDIOVASCULAR: Regular rate and rhythm. No murmur appreciated. RESPIRATORY: No accessory muscle use. Clear to auscultation. Breath sounds equal bilaterally. GASTROINTESTINAL: Abdomen soft, non-tender, nondistended. Hepatic and splenic margins not palpable. MUSCULOSKELETAL: No obvious deformities. No clubbing. No cyanosis. No edema. NEUROLOGICAL: Awake and alert. No obvious cranial nerve deficits. Motor grossly within normal limits. Normal speech. PSYCHIATRIC: Appropriate mood and affect; insight and judgment normal. Data Data Last Documented VS Vital Signs Date Time Temp Pulse Resp B/P (MAP) Pulse Ox O2 Delivery O2 Flow Rate FiO2 07/15/17 23:52 74 16 07/15/17 23:17 99 Room Air 07/15/17 19:52 98.2 Orders Orders Beta Hcg (Quant/Titer) (07/15/17 19:27) Us Pelvis (Ques Pr/Ect)W Trans (07/15/17 21:37) Ed Discharge Order (07/15/17 23:32) Labs Laboratory Tests Test 07/15/17 20:42 Human Chorionic Gonadotropin, Quant 1422 MIU/ML MDM Medical Decision Making Medical Screen Exam Complete: Yes Emergency Medical Condition: Yes Differential Diagnosis Cellulitis, abscess, threatened , completed , Rh mismatch is been excluded on prior visit. Narrative Course Patient room to the emergency department, her abdomen is completely benign and she appears well. She was observed in the emergency department for over 3 hours. Her beta hCG is gone from approximate thousand 1448 hours. All this is increasing and is not the doubling that would be expected. Repeat ultrasound was therefore ordered, patient does have right-sided ovarian cyst which is unchanged from previous. And the solid-appearing mass about 1.9 cm on the left ovary. These findings are unchanged from 2 days ago. Discussed the findings with patient and she states that she did have these findings several months ago as well Last 24 hours Impressions Pelvis Ultrasound 07/15/172136 Signed Impressions: Service Date/Time: July 22:16 - CONCLUSION: No intrauterine gestation identified. No new findings. Jos Lagunas MD Had a lengthy discussion with the patient seems to be fairly reliable. I discussed that until she has a negative test or a positive ultrasound it is unclear as to whether this will be a normal healthy and miscarriage or even an ectopic . Certainly clinically at this time she does not represent a ruptured ectopic and she has no abdominal pain. Therefore doubt that this represents an ectopic . This was all discussed with the patient however I told her that until she has clarification she is at risk of ectopic . She verbalized understanding. 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 She states she has an appointment next week and wonders if she can hold off seeing another physician until that appointment. I recommended to her that she could hold off provided that she is not having abdominal pain weakness fatigue. I recommended that she return to the nearest emergency department if she has any abdominal pain or worsening bleeding. I also recommended that she could return to the emergency department for repeat hCG in 48 hours and consideration of an ultrasound at that time. We did discuss that if she should rupture an ectopic which has not been completely excluded she would be at risk of and permanent disability. She verbalized understanding and agreement. She will be discharged in the emergency department with the above plan. Discussed early care including vitamins abstinence from alcohol drugs and tobacco. She will be on pelvic rest. On the subject of her cellulitis seems to be a simple uncomplicated cellulitis we will treat with Keflex at this time. Discussed return to ED criteria for the cellulitis. Patient also states that she had a dose of azithromycin the other day she has tested positive for STD in the past and 2 days ago she did receive Rocephin and azithromycin and she has not had a test of cure. I discussed that her gonorrhea and chlamydia probe were negative at that time. Diagnosis Primary Impression: Abdominal pain affecting Additional Impression: Cellulitis Qualified Codes: L03.116 - Cellulitis of left lower limb Additional Instructions: If you should develop any abdominal pain recommend he return to the ER as soon as possible. Go to the nearest ER. You are welcome to return 48 hours as we discussed for repeat hCG. Med/Other Pt SpecificInfo: Prescription(s) given Scripts Cephalexin (Keflex) 500 Mg Cap 500 MG PO Q6H for Infection for 7 Days, #28 CAP 0 Refills Prov: Mikal Ray MD 07/15/17 Disposition: 01 DISCHARGE HOME Condition: Stable Mikal Ray MD July 15, 2017 20:36
[2017-07-15 21:24] VITALS: BP 116/59; PULSE 64; RESP 16; O2SAT 100
--- NOTE | 2017-07-15 23:13 | RADRPT ---
EXAM DATE/TIME: 07/15/2017 22:16 [facility] COMPARISON: US PELVIS, PREG, W/TRANSVAGINAL, July 13, 2017, 20:56. INDICATIONS : Pelvic pain. LAB(S): Beta-hC MEDICAL HISTORY : . SURGICAL HISTORY : None. ENCOUNTER: Subsequent ACUITY: 2 days PAIN SCORE: 1/10 LOCATION: Bilateral pelvis MEASUREMENTS: UTERUS: 6.7 x 3.4 x 4.9 cm ENDOMETRIAL STRIPE: 6 mm RIGHT OVARY: 4.6 x 3.3 x 3.7 cm LEFT OVARY: 3.1 x 1.8 x 1.8 cm FREE FLUID: Yes cul de sac FINDINGS: UTERUS: No evidence of intrauterine gestation RIGHT OVARY: Simple appearing ovarian cyst is unchanged. LEFT OVARY: Small solid-appearing mass adjacent to the left ovary is unchanged. MISCELLANEOUS: Decreased volume of cul-de-sac fluid CONCLUSION: No intrauterine gestation identified. No new findings. Jos Lagunas MD on July 15, 2017 at 22:59 Board Certified Radiologist. This report was verified electronically.
[2017-07-15 23:17] VITALS: BP 103/67; PULSE 74; RESP 16; O2SAT 99
[2017-07-15] MEDS ORDERED: CEPH-460 PO (23:31)
[2017-07-20] MEDS ORDERED: PRENTAB7 PO (23:33)
== END 2017-07-15 23:53 | disposition home or self-care (01) ==
LOC: PHED 19:23
DX: O26.891 Other specified pregnancy related conditions, first trimester (principal); L03.116 Cellulitis of left lower limb; O34.81 Maternal care for other abnormalities of pelvic organs, first trimester; N83.201 Unspecified ovarian cyst, right side; Z34.91 Encounter for supervision of normal pregnancy, unspecified, first trimester; Z88.2 Allergy status to sulfonamides; Z88.8 Allergy status to other drugs, medicaments and biological substances
CPT/HCPCS: 76700; 76817; 84702; 99284

== ENCOUNTER 2017-07-20 23:08 | Emergency (ER) | payer BC ==
[2017-07-21 00:57] LABS: AUTOMATED NEUTROPHIL # 9.4 TH/MM3 (1.8-7.7); BASOPHIL % 0.1 % (0.0-2.0); EOSINOPHIL % 0.3 % (0.0-4.0); HEMATOCRIT 42.2 % (35.0-46.0); HEMO FLAGS DIFF FINAL; HEMOGLOBIN 13.9 GM/DL (11.6-15.3); LYMPH % 11.9 % (9.0-44.0); LYMPHOCYTE # 1.4 TH/MM3 (1.0-4.8); MEAN CELL VOLUME 91.5 FL (80.0-100.0); MEAN CORPUSCULAR HEMOGLOBIN 30.2 PG (27.0-34.0); MONO % 5.4 % (0.0-8.0); MONOCYTE # 0.6 TH/MM3 (0-0.9); NEUT % 82.3 % (16.0-70.0); PLATELET COUNT 187 TH/MM3 (150-450); RED BLOOD COUNT 4.61 MIL/MM3 (4.00-5.30); RED CELL DISTRIBUTION WIDTH 12.8 % (11.6-17.2); WHITE BLOOD COUNT 11.4 TH/MM3 (4.0-11.0)
[2017-07-21 01:28] LABS: BETA HCG QUANT 2384 MIU/ML (0-5)
== END 2017-07-21 03:03 | disposition home or self-care (01) ==
LOC: PHED 23:08
DX: R10.30 Lower abdominal pain, unspecified (principal); N83.201 Unspecified ovarian cyst, right side; F12.10 Cannabis abuse, uncomplicated; Z88.2 Allergy status to sulfonamides; Z88.8 Allergy status to other drugs, medicaments and biological substances
CPT/HCPCS: 76700; 76817; 84702; 85025; 99284

== ENCOUNTER → 2017-07-23 | Day surgery (SDC) | payer BC ==
[~2017-07-23] VITALS: Ht 167.6 cm; Wt 86.2 kg
[~2017-07-23] MED LIST changes: +*morphine SULFATE 4 MG/ML PERIprocedure ONLY ONE; +ACETAMINOPHEN 1000 MG/100 ML 100 ML IV ONE; +BUPIVACAINE HCL PF 0.5% 30 ML VIAL ONE; +BUPIVACAINE/EPINEPHRINE 0.5% PF 30 ML VIAL ONE; +CHLORHEXIDINE GLUCONATE 2 % 1 PACK (2 CLOTHS) TOPICAL PRN; +DO NOT ADM ANY ANTICOAGULANT DRUGS PRN; +GLYCOPYRROLATE 1 MG/5 ML SYRINGE IV PUSH ONE; +KETOROLAC TROMETHAMINE 30 MG/ML (IVP) VIAL IV PUSH ONE; +LACTATED RINGER'S 1000 ML INJ 1,000 ML IV ONE; +LACTATED RINGER'S 1000 ML IV PRN; +LIDOCAINE HCL 1% PF 5 ML SYRINGE OTHER ONE; +MEPERIDINE HCL 25 MG/ML VIAL ONE; +METOPROLOL TARTRATE 25 MG TAB PO PRN; +MIDAZOLAM HCL 2 MG/2 ML VIAL ONE; +NEOSTIGMINE 5 MG/5 ML SYRINGE IV PUSH ONE; +ONDANSETRON HCL 4 MG/2 ML VIAL IV PUSH ONE; +ONDANSETRON ODT 4 MG TAB PO PRN; +POVIDONE IODINE 5% (ANTISEPSIS KIT) 4 APPLICATIONS EACH NARE PRN; +PRENTAB7 PO; +PROPOFOL 200 MG/20 ML AMP IV ONE; +ROCURONIUM INJ 50 MG/5 ML SYRINGE IV PUSH ONE; +SODIUM CHLORID 0.9% 500 ML IV PRN; -ZITH1POW PO; -ZOFR4TAB3 SL; +ceFAZolin 2 GM PREMIX 50 ML ONE; +ceFAZolin 2 GM in NS 100 ML IV SCH; +diphenhydrAMINE HCL 50 MG/ML VIAL ONE; +oxyCODONE/ACETAMINOPHEN 5 MG/325 MG TAB PO PRN
[2017-07-23 12:27] LABS: BACTERIA, URINE FEW /hpf; BILIRUBIN, URINE NEG (NEG); BLOOD, URINE SMALL (NEG); GLUCOSE,URINE NEG (NEG); KETONE, URINE NEG (NEG); MUCUS URINE FEW /lpf (OCC); NITRITE,URINE NEG (NEG); PH, URINE 5.5 (5.0-8.5); SQUAMOUS EPITHELIAL CELL URINE 49 /hpf (0-5); URINE COLOR YELLOW (YELLW/STRAW); URINE LEUKOCYTE ESTERASE MOD (NEG)
[2017-07-23 12:31] LABS: AUTOMATED NEUTROPHIL # 3.9 TH/MM3 (1.8-7.7); BASOPHIL % 0.3 % (0.0-2.0); EOSINOPHIL % 0.3 % (0.0-4.0); HEMATOCRIT 40.8 % (35.0-46.0); HEMOGLOBIN 13.6 GM/DL (11.6-15.3); LYMPH % 23.2 % (9.0-44.0); LYMPHOCYTE # 1.4 TH/MM3 (1.0-4.8); MEAN CORPUSCULAR HEMOGLOBIN 30.8 PG (27.0-34.0); MEAN CORPUSCULAR HGB CONC 33.4 % (32.0-36.0); MEAN PLATELET VOLUME 8.9 FL (7.0-11.0); MONO % 10.1 % (0.0-8.0); MONOCYTE # 0.6 TH/MM3 (0-0.9); NEUT % 66.1 % (16.0-70.0); PLATELET COUNT 169 TH/MM3 (150-450); RED BLOOD COUNT 4.44 MIL/MM3 (4.00-5.30); RED CELL DISTRIBUTION WIDTH 13.1 % (11.6-17.2)
--- NOTE | 2017-07-23 13:55 | HHI.DCPOC ---
Discharge Care Plan Diagnosis: (1) Ruptured left tubal ectopic causing hemoperitoneum Your Health Problems Are: Incisions/drains Vaginal bleeding Report Symptoms to Your Doctor -Temperature above 100.5 degrees -Redness, of incision or excessive or foul smelling drainage -Unusual pain or calf pain -Increased vaginal bleeding -Painful or difficulty urinating -Feelings of extreme sadness or anxiety after 2 weeks Goals to Promote Your Health * To prevent worsening of your condition and complications * To maintain your health at the optimal level Directions to Meet Your Goals Take your medications as prescribed Follow your dietary instruction Follow activity as directed Ensure plenty of rest for recovery Drink fluids for hydration Keep your appointments as scheduled Take your immunizations and boosters as scheduled If your symptoms worsen call your PCP, if no PCP go to Urgent Care Center or Emergency Room Smoking is Dangerous to Your Health. Avoid second hand smoke Call the 24-hour crisis hotline for domestic abuse at She Castro MD July 23, 2017 13:55
--- NOTE | 2017-07-23 14:06 | HHI.PR ---
Immediate Post Op Note Procedure Date: July 23, 2017 Pre Op Diagnosis: (1) Ruptured left tubal ectopic causing hemoperitoneum Post Op Diagnosis: (1) Ruptured left tubal ectopic causing hemoperitoneum (2) Pelvic adhesive disease Surgeon: She Castro Hammer Setter(s): staff Procedure: Exam under anesthesia, laparoscopic assisted left salpingectomy and lysis of adhesions. Findings: left tube markedly dilated surrounded w clot, 100cc of blood in posterior cul de sac. right tube patent, small paratubal cysts. Filmy adhesions of omentum to anterior and lateral right side wall, likely pid in past. cervix, uterus and ovaries wnl. Appendix not visualized. Liver edge normal. Complications: none Anesthesia: General Drains: None Fluids: 1400ml IVF Urinary Output (mLs): 100 Patient to: PACU Patient Condition: Good Date/Time of Procedure: SEE SURGICAL CARE RECORD She Castro MD July 23, 2017 14:05
--- NOTE | 2017-07-23 16:55 | MP ---
cc: She Castro MD, Patricia C MD DATE OF OPERATION: 07/23/2017 PREOPERATIVE DIAGNOSIS: Left ruptured ectopic . POSTOPERATIVE DIAGNOSIS: Left ruptured tubal ectopic , pelvic adhesive disease. SURGEON: She Castro MD SKI PATROL OFFICER: Arash staff. PROCEDURES PERFORMED: Exam under anesthesia, laparoscopic assisted left salpingectomy with lysis of adhesions. INDICATIONS: The patient is a 21-year-old G2, P0-0-1-0 who had previously been seen in the Emergency Department starting on 07/13 for of unknown location. Her initial beta hCG was 1000 and at repeat visit on 07/21/2017, beta hCG was 2,286. She had an ultrasound at that time which showed a questionable gestational sac and free fluid in the pelvis. She was advised to maintain close followup for her new OB problem visits. I met the patient today in the office, at which time we repeated an ultrasound that was significant for a left adnexal ectopic approximately 2.5 cm in size, and a significant amount of free fluid. She had been n.p.o. and decision was made to proceed immediately with the surgery given there was evidence of ruptured ectopic tubal . She was hemodynamically stable and had no acute abdominal findings on office exam. IV FLUIDS: 1400 mL URINE OUTPUT: 100 mL of clear yellow urine at the end of the case. ESTIMATED BLOOD LOSS: 100 mL PREOPERATIVE ANTIBIOTICS: Ancef 2 grams IV given pre-incision. DVT PROPHYLAXIS: SCDs bilateral extremities. COMPLICATIONS: None. COUNTS: Correct x3. SPECIMEN: Left fallopian tube with products of conception INTRAOPERATIVE FINDINGS: Normal cervix. Uterus sounded to 8 cm. Uterus retroverted. Right tube with paratubal cyst, normal fimbria and tube caliber. Normal right ovary, normal left ovary. Left tube markedly dilated surrounded by clots. Posterior cul-de-sac with 100 mL of blood. Filmy adhesions between omentum and anterior abdominal wall towards the right sidewall. Normal liver edge. Appendix not visualized. Likely prior pelvic inflammatory disease, known chlamydia infection in 04/2017. DISPOSITION: Stable to PACU. PROCEDURE IN DETAIL: After review of informed consent, the patient was taken to the operating room, where general anesthesia was administered without complication. She was placed in dorsal lithotomy position in Dominick stirrups. An exam under anesthesia was performed. The uterus was retroverted approximately 8 weeks in size. Adnexa was not palpable. Minimal blood in the vagina. The abdomen and perineum were prepped and draped in normal sterile fashion. A Curiel was placed under sterile conditions. A bivalve speculum was placed in the vagina. A single-tooth tenaculum was placed anterior lip of the cervix. The sound was used and the uterus was sounded to 8 cm. A Hulka uterine manipulator was placed. Single-tooth tenaculum was removed. The speculum was removed. Gloves were changed. Attention was turned to the abdomen. Marcaine 0.5% with epinephrine was used to inject in the umbilical fold. A 5 mm skin incision was made with a scalpel. A 5 mm trocar was used for direct visual insertion while tenting the abdomen. After abdominal placement was confirmed, the abdomen was insufflated. Omental adhesions were noted immediately in the right anterior abdominal wall. A 12 mm left lower quadrant trocar site was established. The harmonic was used to take down the adhesions of the omentum to the anterior and right side of abdominal wall. Good visualization was then established. The abdominal survey was performed. See intraoperative findings. Copious irrigation and suctioning was performed. A 5 mm right lower quadrant trocar site was established. The right tube was inspected and noted to be normal with normal fimbria. There were 3 small paratubal cysts. The left tube was transected from lateral to medial fashion towards the cornual region. These pedicles were hemostatic. The left tube was placed in the Endo Catch and removed from the 12 mm trocar site. Further irrigation was performed and suction. Good hemostasis was noted. The abdomen was desufflated. The 12 mm fascial incision was closed with 0 chromic in a running fashion. The skin was closed with 3-0 Monocryl in a subcuticular fashion. The 5 mm trocars were removed after 5 deep Valsalva breaths were given. The incisions were closed with 3-0 Monocryl. Steri-Strips were placed on all incision sites. The speculum was placed in the vagina. The Hulka uterine manipulator was removed. A sponge stick was used to ensure hemostasis. The speculum was removed. The Curiel was removed. The patient was placed in dorsal supine position. Anesthesia was reversed without complication and pt was taken to pacu in stable condition. Findings were reviewed with the patient and family. She will followup in 2 weeks for postoperative visit. MD GEETA Cowart/ , 03:32 PM , 04:53 PM RUSLAN
[2017-07-23 17:05] VITALS: BP 121/69; PULSE 64; RESP 18; TEMP 97.5; O2SAT 100
== END | disposition home or self-care (01) ==
LOC: HSDC 11:24
PROVIDERS: ATTEND Obstetrics & Gynecology
DX: O00.102 Left tubal pregnancy without intrauterine pregnancy (principal)
CPT/HCPCS: 00840; 59151; 81001; 85025; 86850; 86900; 86901; 86920; 87086; 88305; J0131; J0690; J1200; J1885; J2175; J2250; J2270; J2405; J2710; J3010; J7120